=== PATIENT | female | born 1995 ===

== ENCOUNTER 2021-12-12 18:22 | Outpatient (CLI) | payer SELFPAY ==
[2021-12-12] MEDS ORDERED: NIFEdipine*For Tocolysis only* 10 MG CAPSULE PO ONE ×2 (19:13→22:00)
[2021-12-12] MEDS ORDERED: LACTATED RINGERS 1,000 ML IV SCH (19:15)
[2021-12-12] MEDS ORDERED: BETAMET ACET/BETAMET NA PH 6 MG/ML INJ 5 ML MDV IM SCH (20:00)
[2021-12-13 00:36] VITALS: BP 96/56
[2021-12-13] MEDS ORDERED: TERBUTALINE 1 MG/1 ML INJ SUB-Q ONE (00:49)
--- NOTE | 2021-12-13 06:55 | Ultrasound Report ---
ULTRASOUND OBSTETRIC INDICATION / CLINICAL INFORMATION: contractions, Twins. Clinical Gestational Age (GA) in weeks, days: 28, 0 TECHNIQUE: Transabdominal. COMPARISON: None available. FINDINGS: Twin intrauterine . TWIN A: Biparietal Diameter = 7.4 cm = 29, 3 weeks, days Head Circumference = 24.7 cm = 26, 6 weeks, days Abdominal Circumference = 23.8 cm = 20, 1 weeks, days Femur Length = 5.0 cm = 27, 0 weeks, days Average Ultrasound Age (AUA) = 28, 4 weeks, days Heart Rate: 150 beats per minute. Estimated Weight in grams (if calculated): 1114 Estimated Weight Growth Percentile (if calculated): Position: cephalic. TWIN B: Biparietal Diameter = 7.2 cm = 29, 0 weeks, days Head Circumference = 25.5 cm = 27, 5 weeks, days Abdominal Circumference = 25.2 cm = 29, 3 weeks, days Femur Length = 5.3 cm = 28, 0 weeks, days Average Ultrasound Age (AUA) = 27, 6 weeks, days TRACE for twin B measuring 14.2 cm. Heart Rate: 143 beats per minute. Estimated Weight in grams (if calculated): 1277 Position: breech. Cervix: closed. Length in cm (if measured): 3.3 Placenta: anterior and free of the os. IMPRESSION: 1. Twin live intrauterine gestations with twin A measuring approximately 27 weeks 6 days and twin B m easuring approximately 28 weeks 4 days. 2. No significant sonographic abnormality. Signer Name: Florentin Jhaveri DO Signed: 12/13/2021 6:51 AM Workstation Name: [id number]
== END 2021-12-13 01:15 | disposition home or self-care (01) ==
LOC: TRG 18:22 → APU 18:25 → TRG 12-13 01:15
PROVIDERS: ATTEND Obstetrics & Gynecology
DX: O62.9 Abnormality of forces of labor, unspecified (principal); O32.1XX2 Maternal care for breech presentation, fetus 2; O30.003 Twin pregnancy, unspecified number of placenta and unspecified number of amniotic sacs, third trimester; Z3A.28 28 weeks gestation of pregnancy
CPT/HCPCS: 36415; 59025; 76816; 76817; 82731; 96361; 96365; 96366; 96372; J0690; J0702; J3105; J7120; 96360

== ENCOUNTER 2022-01-13 05:43 | Inpatient (IN) | payer SELFPAY ==
[2022-01-13] MEDS ORDERED: LACTATED RINGERS 1,000 ML ONE (07:08)
[2022-01-13] MEDS ORDERED: ACETAMINOPHEN 325 MG TAB PO PRN (08:00)
[2022-01-13] MEDS ORDERED: AMPICILLIN/NS 2 GM/100 ML 2 GM/100 ML BAG IV SCH (08:00)
[2022-01-13] MEDS ORDERED: ONDANSETRON 4 MG/2 ML INJ IV SCH (08:30)
[2022-01-13] MEDS ORDERED: LACTATED RINGERS 500 ML IV ONE (08:30)
[2022-01-13] MEDS: BETAMET ACET/BETAMET NA PH 6 MG/ML INJ 5 ML MDV IM SCH (08:30)
[2022-01-13 08:52] LABS: Basophils % (Auto) 0.2 % (0.0-1.8); Eosinophils # (Auto) 0.1 K/mm3 (0.0-0.4); Eosinophils % (Auto) 0.9 % (0.0-4.3); Hematocrit 29.9 % (30.3-42.9); Hemoglobin 9.6 gm/dl (10.1-14.3); Lymphocytes # (Auto) 2.6 K/mm3 (1.2-5.4); Lymphocytes % (Auto) 17.7 % (13.4-35.0); Mean Corpuscular HGB Conc 32 % (30-34); Mean Corpuscular Volume 78 fl (79-97); Monocytes # (Auto) 1.4 K/mm3 (0.0-0.8); Monocytes % (Auto) 9.6 % (0.0-7.3); Platelet Count 287 K/mm3 (140-440); Red Blood Count 3.83 M/mm3 (3.65-5.03); Red Cell Distribution Width 17.2 % (13.2-15.2)
[2022-01-13 09:17] LABS: Alanine Aminotransferase 7 units/L (7-56); Albumin 3.5 g/dL (3.9-5); Blood Urea Nitrogen 3 mg/dL (7-17); Calcium 8.6 mg/dL (8.4-10.2); Hemolysis Index 7
[2022-01-13] MEDS ORDERED: MAGNESIUM SULFATE 4 GM/100 ML BAG IV ONE (09:30)
[2022-01-13 09:31] LABS: BUN/Creatinine Ratio 8
[2022-01-13 09:50] LABS: Amphetamine Screen,Urine Negative; Benzodiazepines Screen,Urine Negative; Cannabinoid Screen,Urine Negative; Cocaine Screen,Urine Negative; Methadone Screen,Urine Negative; Opiate Screen,Urine Negative
[2022-01-13] MEDS: MAGNESIUM SULFATE 40GM/1000ML 40 GM/1,000 ML BAG IV SCH (10:00)
--- NOTE | 2022-01-13 10:59 | History and Physical Report ---
History of Present Illness Date of examination: 01/13/22 Date of admission: 01/13/22 Chief complaint: Contractions. History of present illness: 32+ wks, . MANDIE 03/06/22. TWINS, x2 previous vaginal deliveries. Past History Past Medical History: no pertinent history - Obstetrical History Expected Date of Delivery: 03/06/22 Actual Gestation: 32 Week(s) 4 Day(s) : 4 Para: 2 Medications and Allergies Allergies Allergy/AdvReac Type Severity Reaction Status Date / Time No Known Allergies Allergy Verified 01/13/22 10:25 Active Meds: Active Medications Acetaminophen (Acetaminophen 325 Mg Tab) 650 mg PO Q4H PRN PRN Reason: Pain, Mild (1-3) Betamethasone Acet/Betameth SodPhos (Betamet Acet/Betamet Na Ph 6 Mg/Ml Inj 5 Ml Mdv) 12 mg IM Q24H GEOFF Stop: 01/14/22 09:01 Last Admin: 01/13/22 08:30 Dose: 12 mg Fentanyl (Fentanyl 100 Mcg/2 Ml Inj) 100 mcg IV Q2H PRN PRN Reason: Pain,Severe (7-10) LABOR PAIN Ampicillin Sodium (Ampicillin/Ns 2 Gm/100 Ml) 2 gm in 100 mls @ 100 mls/hr IV ONCE@0800 [facility]; Protocol Stop: 01/13/22 12:00 Last Admin: 01/13/22 08:30 Dose: 100 mls/hr Ampicillin Sodium (Ampicillin/Ns 1 Gm/50 Ml) 1 gm in 50 mls @ 100 mls/hr IV Q4H [facility]; Protocol Lactated Ringer's (Lactated Ringers) 1,000 mls @ 125 mls/hr IV DIRECT GEOFF Magnesium Sulfate (Magnesium Sulfate 40gm/1000ml) 40 gm in 1,000 mls @ 50 mls/hr IV DIRECT GEOFF Last Admin: 01/13/22 10:00 Dose: 2 gm/hr, 50 mls/hr Ondansetron HCl (Ondansetron 4 Mg/2 Ml Inj) 4 mg IV ONCE@0830 [facility] Stop: 01/13/22 12:30 Last Admin: 01/13/22 08:30 Dose: 4 mg Review of Systems All systems: negative Genitourinary: contractions - Vital Signs Vital signs: Vital Signs Pulse BP Pulse Ox 95 H 99/58 98 01/13/22 06:28 06/13/22 06:28 01/13/22 06:28 Temp Pulse Resp BP Pulse Ox 98.3 F 95 H 16 107/61 96 01/13/22 09:32 01/13/22 10:48 01/13/22 09:32 01/13/22 10:07 01/13/22 10:48 - Physical Exam Breasts: Positive: deferred Lungs: Positive: Normal air movement Abdomen: Positive: normal appearance, distention, normal bowel sounds Genitourinary (Female): Positive: normal external genitalia Vulva: both: normal Vagina: Positive: normal moisture. Negative: discharge Cervix: Negative: lesion, discharge Uterus: Positive: enlarged, normal contour Extremities: Positive: normal Deep Tendon Reflex Grade: Normal +2 - Obstetrical FHR: category 1 Cervical Dilatation: 5 Cervical Effacement Percentage: 100 station: 0+2 Uterine Contraction Pattern: Regular Uterine Contraction Intensity: Strong/Firm Results Result Diagrams: 01/13/22 08:22 01/13/22 08:22 Abnormal lab results 01/13/22 01/13/22 Range/Units 08:22 08:22 WBC 14.9 H (4.5-11.0) K/mm3 Hgb 9.6 L (10.1-14.3) gm/dl Hct 29.9 L (30.3-42.9) % MCV 78 L (79-97) fl MCH 25 L (28-32) pg RDW 17.2 H (13.2-15.2) % Iron % (Auto) 9.6 H (0.0-7.3) % Iron # (Auto) 1.4 H (0.0-0.8) K/mm3 Seg Neutrophils % 71.6 H (40.0-70.0) % Seg Neutrophils # 10.6 H (1.8-7.7) K/mm3 Sodium 136 L (137-145) mmol/L Carbon Dioxide 20 L (22-30) mmol/L BUN 3 L (7-17) mg/dL Creatinine 0.4 L (0.6-1.2) mg/dL Albumin 3.5 L (3.9-5) g/dL All other labs normal. Assessment and Plan - Patient Problems (1) 32 weeks gestation of Current Visit: Yes Status: Acute (2) Twin gestation in third trimester Current Visit: Yes Status: Acute (3) labor in third trimester Current Visit: Yes Status: Acute Plan to address problem: Admitted, GBS cultures, IV ampicillin IM celestone, IV MgSO4 instituted. NICU aware. Vaginal delivery likely.
[2022-01-13] MEDS: AMPICILLIN/NS 1 GM/50 ML 1 GM/50 ML BAG IV SCH ×3 (12:28→20:03)
[2022-01-13] MEDS: fentaNYL 100 MCG/2 ML INJ IV PRN ×2 (12:32→15:46)
[2022-01-13 12:55] LABS: Bilirubin,Urine Negative (Negative); Color,Urine Yellow (Yellow)
[2022-01-13 12:56] LABS: Blood,Urine Negative (Negative); Protein,Urine <15 mg/dL mg/dL (Negative)
--- NOTE | 2022-01-13 16:53 | Anesthesia Consultation ---
Anesthesia Consult and Med Hx Date of service: 01/13/22 - Airway Anesthetic Teeth Evaluation: Poor ROM Head & Neck: Adequate Mental/Hyoid Distance: Adequate Mallampati Class: Class II Intubation Access Assessment: Good - Pulmonary Exam CTA: Yes - Cardiac Exam Cardiac Exam: RRR - Pre-Operative Health Status ASA Pre-Surgery Classification: ASA2 Proposed Anesthetic Plan: Epidural - Pulmonary Hx Smoking: No Hx Asthma: No Hx Respiratory Symptoms: No SOB: No COPD: No Hx Pneumonia: No - Cardiovascular System Hx Hypertension: No - Central Nervous System Hx Seizures: No Hx Psychiatric Problems: No - Endocrine Hx Renal Disease: No Hx End Stage Renal Disease: No Hx Hypothyroidism: No Hx Hyperthyroidism: No - Hematic Hx Anemia: Yes Hx Sickle Cell Disease: No - Other Systems Hx Alcohol Use: No Hx Substance Use: No Hx Obesity: Yes - Additional Comments Anesthesia Medical History Comments: Pre term Labor 32wks Twins on MgS04
[2022-01-13] MEDS ORDERED: NALOXONE 0.4 MG/1 ML INJ IV PRN (17:01)
[2022-01-13] MEDS: LACTATED RINGERS 1,000 ML IV SCH ×3 (17:24→22:03)
[2022-01-13] MEDS ORDERED: NalbUPHINE 10 MG/1 ML INJ IV PRN (17:30)
[2022-01-13] MEDS ORDERED: fentaNYL 100 MCG/2 ML INJ IV PRN (17:30)
--- NOTE | 2022-01-13 19:05 | Progress Note ---
Labor Epidural - Labor Epidural Start Time: 18:36 Stop Time: 18:44 Performed by:: ABEBA POWELL Procedure: Patient is requesting epidural for labor pain. H&P and labs reviewed. Procedure explained, questions answered, consent obtained. Patient placed in sitting position with monitors applied. Timeout performed immediately before start of procedure. Prep/drape in usual sterile fashion. Skin localized 3 mL 1% lidocaine at L[3]-L[4] interspace. 17-gauge Touhy epidural needle advanced to LADONNA with saline at [6] cm x 1 attempts. No blood/CSF noted via epidural needle. Epidural catheter advanced to [10] cm. Negative aspiration for blood and CSF via catheter, negative response to test dose 3 ml 1.5% lidocaine w/ Epi. Sterile dressing applied followed by tape reinforcement. Patient tolerated procedure well. No immediate complications noted.
[2022-01-13] MEDS: fentaNYL-BUPIV 2 MCG/ML-0.125% 200 MCG/100 ML BAG EPIDURAL SCH (19:23)
[2022-01-13 19:55] LABS: Hepatitis C Virus Antibody Non-Reactive (NonReactive)
[2022-01-13] MEDS: ePHEDrine SULFATE 50 MG/1 ML INJ IV PRN ×2 (20:00→20:37)
[2022-01-14] MEDS: AMPICILLIN/NS 1 GM/50 ML 1 GM/50 ML BAG IV SCH ×5 (00:43→20:26)
--- NOTE | 2022-01-14 01:33 | Ultrasound Report ---
US OB limited, US OB follow up, US OB bpp ea add exam, US OB followup ea add gestat, US OB feta l BPP wo non-stress INDICATION / CLINICAL INFORMATION: labor COMPARISON: OB ultrasound 12/12/2021 TECHNIQUE: Using a transcutaneous probe, multiple grayscale, color Doppler, and spectral Doppler imag es of the uterus and fetuses were captured and stored. Additional biophysical profiles performed on e ach fetus. FINDINGS: Gestational sac is demonstrated with thin internal septation compatible with intertwin septation, con figuration of the placenta not clearly identified. The appearance based on thin intertwin septation i s thought to represent monochorionic diamniotic twins, however dichorionic diamniotic twins are docum ented on worksheet. Note is made that after the first trimester, a monochorionic placenta can be mult ilobed and dichorionic placentas may be fused. No earlier studies are available to clearly document t he complete septum. The uterine cervix is not identified. TWIN A: Twin A lies in cephalic position with a heart rate 134 bpm. Placenta documented to lie anteriorly and within the left lateral position. No evidence of abruption. Largest pocket of fluid measures 3.39 cm. Biparietal Diameter = 7.9 cm = 31, 5 weeks, days Head Circumference = 29.0 cm = 31, 6 weeks, days Abdominal Circumference = 28.8 cm = 32, 6 weeks, days Femur Length = 6.0 cm = 31, 1 weeks, days Average Ultrasound Age (AUA) = 31, 6 weeks, days. EDC 03/11/2022. Clinical history gestational age based on LMP of 05/30/2021 is 32 weeks 4 days. Estimated weight = 1908 g. Growth percentile 27%. BREATHING MOVEMENT = 2 GROSS BODY MOVEMENT = 2 TONE = 2 QUALITATIVE AMNIOTIC FLUID VOLUME = 2 TOTAL BIOPHYSICAL SCORE = 8/8 Heart rate of 138 bpm during acquisition of biophysical profile. TWIN B: Twin B lies in transverse position head to the maternal right, heart rate 140 bpm. Placenta is documented to lie within the posterior/left lateral position, grade 2. No evidence of abr uption. The largest pocket of fluid measures 5.93 cm. Biparietal Diameter = 8.0 cm = 31, 6 weeks, days Head Circumference = 30.2 cm = 33, 4 weeks, days Abdominal Circumference = 29.9 cm = 33, 6 weeks, days Femur Length = 5.9 cm = 30, 5 weeks, days Average Ultrasound Age (AUA) = 32, 4 weeks, days. Estimated date of delivery 03/06/2022. Clinical history gestational age based on LMP of 05/30/2021 is 32 weeks 4 days. Estimated weight = 2037 g. Growth percentile 45%. BREATHING MOVEMENT = 2 GROSS BODY MOVEMENT = 2 TONE = 2 QUALITATIVE AMNIOTIC FLUID VOLUME = 2 TOTAL BIOPHYSICAL SCORE = 8/8 IMPRESSION: 1. Living twin gestation as detailed. Minimal disparity in twin size. A thin internal membrane is pre sent. This finding is thought to represent evidence of monochorionic diamniotic twins, see discussion above. 2. Uterine cervix not identified. 3. Normal biophysical profile score for both twins. 4. Largest pocket of amniotic fluid as detailed. Signer Name: Carl Ramesh II, MD Signed: 01/14/2022 1:28 AM Workstation Name: [id number]
[2022-01-14] MEDS: ePHEDrine SULFATE 50 MG/1 ML INJ IV PRN (02:09)
[2022-01-14] MEDS: fentaNYL-BUPIV 2 MCG/ML-0.125% 200 MCG/100 ML BAG EPIDURAL SCH ×3 (03:48→21:10)
[2022-01-14] MEDS: MAGNESIUM SULFATE 40GM/1000ML 40 GM/1,000 ML BAG IV SCH (05:51)
[2022-01-14] MEDS: BETAMET ACET/BETAMET NA PH 6 MG/ML INJ 5 ML MDV IM SCH (08:42)
[2022-01-14] MEDS ORDERED: CARBOPROST TROMETHAMINE 250 MCG/1 ML INJ IM PRN (09:23)
[2022-01-14] MEDS ORDERED: LIDOCAINE (2%) 20 MG/1 ML VIAL 20 ML MDV INFILTRATI ONE (09:23)
[2022-01-14] MEDS ORDERED: OXYTOCIN 10 UNIT/1 ML INJ IM PRN (09:23)
[2022-01-14] MEDS ORDERED: LOPERAMIDE 2 MG CAP PO PRN (09:23)
[2022-01-14] MEDS ORDERED: ePHEDrine SULFATE 50 MG/1 ML INJ IV PRN (09:23)
[2022-01-14] MEDS ORDERED: TERBUTALINE 1 MG/1 ML INJ SUB-Q PRN (09:23)
[2022-01-14] MEDS ORDERED: miSOPROStol 200 MCG TAB PR PRN (09:23)
[2022-01-14] MEDS ORDERED: fentaNYL 100 MCG/2 ML INJ IV PRN (10:00)
[2022-01-14] MEDS ORDERED: OXYTOCIN DRIP 30 UNITS/500 ML BAG IV SCH ×2 (10:00)
[2022-01-14] MEDS ORDERED: NalbUPHINE 10 MG/1 ML INJ IV PRN (10:00)
[2022-01-14] MEDS ORDERED: ACETAMINOPHEN 325 MG TAB PO PRN (10:00)
[2022-01-14] MEDS ORDERED: PROMETHAZINE 25 MG TAB PO PRN (10:00)
[2022-01-14] MEDS ORDERED: ONDANSETRON 4 MG/2 ML INJ IV PRN (10:00)
--- NOTE | 2022-01-14 10:41 | Event Note ---
Date: 01/14/22 pt evaluated and comfortable with epidural, di/di twin gest vtx/breech and cervix unchanged. FHR categor I for both babies and cts ocassional at this time. Consult to [facility] done and await physician to see pt. Pt has received rescue dose of betamethasone x1. Will do expectant mgt and Anesthesia notified and state pt may remain with epidural if wbc wnl, however if pt not in labor, epidural can be removed. If delivery imminent, then will do delivery with double setup in the OR. All questions encouraged and answered. Will continue G BS prophylaxis with advanced cervical dilation.
--- NOTE | 2022-01-14 13:35 | Consultation ---
History of Present Illness Consult date: 01/14/22 Requesting physician: SUJIT BARBOSA History of present illness: Ms. Lizz Garduno is a 26 y/o SF MANDIE 03/06/22 EGA at 32 5/7 weeks Di/Di Twins presented in PTL with advanced dilation S/P Steroids [employer] ID [id number] - Sahian Cervix per nurse at 6 cm Contractions Denies rupture Epidural in place C/O back pain and nausea Seen once by [facility] 01/06/2002 - See [facility] report attached to chart [facility] 01/06/22 Twin A at 1857g 49% - VTX Twin B at 1873g 51% - [facility] US 01/13/22 Twin A at 1908g 27% - VTX Twin B at 2038g 45% - Transverse OB history X 2 Tern in 2019 NO med ds No C/D/D Denies STD's NKA Past History Past Medical History: no pertinent history - Obstetrical History : 4 Medications and Allergies Allergies Allergy/AdvReac Type Severity Reaction Status Date / Time No Known Allergies Allergy Verified 01/13/22 10:25 Home Medications Medication Instructions Recorded Confirmed Last Taken Type Ferrous Fumarate (Nf) 1 tab PO BID 01/13/22 01/13/22 01/12/22 History [Hemocyte(Nf)] Folic Acid 1 tab PO DAILY 01/13/22 01/13/22 01/12/22 History Vitamin 1 tab PO DAILY 01/13/22 01/13/22 01/12/22 History Active Meds: Active Medications Acetaminophen (Acetaminophen 325 Mg Tab) 650 mg PO Q4H PRN PRN Reason: Pain, Mild (1-3) Carboprost Tromethamine (Carboprost Tromethamine 250 Mcg/1 Ml Inj) 250 mcg IM ONCE PRN PRN Reason: Uterine Bleeding Ephedrine Sulfate (Ephedrine Sulfate 50 Mg/1 Ml Inj) 10 mg IV Q2M PRN PRN Reason: Hypotension Fentanyl (Fentanyl 100 Mcg/2 Ml Inj) 100 mcg IV Q2H PRN PRN Reason: Pain,Severe (7-10) LABOR PAIN Ampicillin Sodium (Ampicillin/Ns 1 Gm/50 Ml) 1 gm in 50 mls @ 100 mls/hr IV Q4H GEOFF; Protocol Last Admin: 01/14/22 10:54 Dose: 100 mls/hr Magnesium Sulfate (Magnesium Sulfate 40gm/1000ml) 40 gm in 1,000 mls @ 50 mls /hr IV DIRECT GEOFF Last Admin: 01/14/22 05:51 Dose: 2 gm/hr, 50 mls/hr Fentanyl/Bupivacaine/Sodium Chlor (Fentanyl-Bupiv 2 Mcg/Ml-0.125%) 200 mcg in 100 mls @ 12 mls/hr EPIDURAL TITR GEOFF; Protocol Last Admin: 01/14/22 03:48 Dose: 12 mls/hr Oxytocin/Sodium Chloride (Pitocin/Ns 30 Unit/500ml) 30 units in 500 mls @ 2 mls/hr IV TITR GEOFF; Protocol Lactated Ringer's (Lactated Ringers) 1,000 mls @ 125 mls/hr IV DIRECT GEOFF Oxytocin/Sodium Chloride (Pitocin/Ns 30 Unit/500ml) 30 units in 500 mls @ 40 mls/hr IV TITR GEOFF; Protocol Loperamide HCl (Loperamide 2 Mg Cap) 2 mg PO ONCE PRN PRN Reason: give with Hemabate Mineral Oil (Mineral Oil 30 Ml Oral Liqd) 30 ml PO QHS PRN PRN Reason: Constipation Misoprostol (Misoprostol 200 Mcg Tab) 800 mcg ND ONCE PRN PRN Reason: Uterine Bleeding Nalbuphine HCl (Nalbuphine 10 Mg/1 Ml Inj) 10 mg IV Q2H PRN PRN Reason: Pain, Moderate (4-6) Naloxone HCl (Naloxone 0.4 Mg/1 Ml Inj) 0.2 mg IV Q5MIN PRN PRN Reason: Respiratory sedation Ondansetron HCl (Ondansetron 4 Mg/2 Ml Inj) 4 mg IV Q8H PRN PRN Reason: Nausea And Vomiting Oxytocin (Oxytocin 10 Unit/1 Ml Inj) 10 unit IM ONCE PRN PRN Reason: Uterine Bleeding Promethazine HCl (Promethazine 25 Mg Tab) 25 mg PO Q6H PRN PRN Reason: Nausea And Vomiting Terbutaline Sulfate (Terbutaline 1 Mg/1 Ml Inj) 0.25 mg SUB-Q ONCE PRN PRN Reason: Hyperstimulation/Hypertonicity - Vital Signs Vital signs: Vital Signs Pulse BP Pulse Ox 95 H 99/58 98 01/13/22 06:28 01/13/22 06:28 01/13/22 06:28 Temp Pulse Resp BP Pulse Ox 98.5 F 98 H 16 92/55 95 01/14/22 09:26 01/14/22 13:29 01/14/22 09:26 01/14/22 12:39 01/14/22 13:29 Results Result Diagrams: 01/13/22 08:22 01/13/22 08:22 Abnormal lab results 01/13/22 01/13/22 01/14/22 Range/Units 18:34 23:09 11:43 Magnesium 5.30 H 5.90 H 6.50 H (1.7-2.3) mg/dL All other labs normal. Assessment and Plan Impression: 1. Di/Di Twin IUP at 32 5/7 weeks 2. PTL - Advanced Dilation 3. Anemia Recommendations 1. Steroids for FLM [address] 3. Would not Tocolys - 4. NICU Consult 5. Discussed with Dr. Barbosa 6. US done ( See results ) EFM Twin A and B Categ I 7. [employer] Utilized see above
[2022-01-14] MEDS ORDERED: MINERAL OIL 30 ML ORAL LIQD PO PRN (22:00)
[2022-01-15] MEDS: AMPICILLIN/NS 1 GM/50 ML 1 GM/50 ML BAG IV SCH ×5 (00:30→20:33)
[2022-01-15] MEDS ORDERED: NIFEdipine*For Tocolysis only* 10 MG CAPSULE PO STA (02:52)
[2022-01-15] MEDS ORDERED: NIFEdipine*For Tocolysis only* 10 MG CAPSULE PO SCH (06:00)
[2022-01-15] MEDS ORDERED: SIMETHICONE 80 MG CHEW TAB PO PRN (06:17)
[2022-01-15] MEDS: fentaNYL-BUPIV 2 MCG/ML-0.125% 200 MCG/100 ML BAG EPIDURAL SCH ×2 (06:32→16:14)
[2022-01-15] MEDS ORDERED: diphenhydrAMINE 50 MG/ML VIAL IV ONE (07:17)
[2022-01-15] MEDS: LACTATED RINGERS 1,000 ML IV SCH (16:15)
[2022-01-15] MEDS ORDERED: AMPICILLIN/NS 2 GM/100 ML 2 GM/100 ML BAG IV ONE (18:49)
--- NOTE | 2022-01-15 18:55 | Event Note ---
Date: 01/15/22 pt evaluated and pt c/o pelvic pressure and pain to upper abd. Pelvic exam done and pt 8-9cm intact with large amount of white discharge. Will repeat CBC now, give amp 2gm now and will plan to proceed to the OR for vaginal delivery when complete and pt still with epidural in place with vertex twin A and breech twin B. Plan of care discussed with pt and await charge nurse and staff to be present. Twin A with deep variables and variability still present. Possible section if Twin B non-reassuring. All questions encouraged and an swered.
[2022-01-15 21:30] LABS: Basophils % (Auto) 0.1 % (0.0-1.8); Eosinophils % (Auto) 0.1 % (0.0-4.3); Hematocrit 25.5 % (30.3-42.9); Lymphocytes # (Auto) 1.8 K/mm3 (1.2-5.4); Lymphocytes % (Auto) 17.4 % (13.4-35.0); Mean Corpuscular HGB Conc 32 % (30-34); Mean Corpuscular Volume 81 fl (79-97); Monocytes # (Auto) 1.1 K/mm3 (0.0-0.8); Monocytes % (Auto) 10.8 % (0.0-7.3); Platelet Count 297 K/mm3 (140-440); Red Blood Count 3.14 M/mm3 (3.65-5.03); Red Cell Distribution Width 18.9 % (13.2-15.2)
[2022-01-16] MEDS: fentaNYL-BUPIV 2 MCG/ML-0.125% 200 MCG/100 ML BAG EPIDURAL SCH ×3 (03:32→18:26)
[2022-01-16] MEDS: LACTATED RINGERS 1,000 ML IV SCH ×2 (03:37→12:49)
--- NOTE | 2022-01-16 08:04 | Progress Note ---
Assessment and Plan A: Twin Gestation @ 33 Weeks Category I Tracing x2 Advanced Cervical Dilatation Bilateral Labial Edema Asymptomatic Anemia P: Expectant Management Consult Dr. Berrios due to Twin Gestation with advanced cervical dilatation Subjective - Subjective Date of service: 01/16/22 Principal diagnosis: Labor; Twin Gestation Patient reports: movement normal, other (Resting well under epidural anesthesia) Objective - Vital Signs Vital Signs: Vital Signs - 12hr 01/15/22 01/15/22 01/15/22 20:04 20:09 20:14 Temperature Pulse Rate 78 75 81 Respiratory Rate Blood Pressure Blood Pressure [Right] O2 Sat by Pulse 97 97 96 Oximetry 01/15/22 01/15/22 01/15/22 20:19 20:24 20:29 Temperature Pulse Rate 81 84 84 Respiratory Rate Blood Pressure Blood Pressure [Right] O2 Sat by Pulse 96 97 98 Oximetry 01/15/22 01/15/22 01/15/22 20:34 20:39 20:44 Temperature Pulse Rate 80 78 78 Respiratory Rate Blood Pressure Blood Pressure [Right] O2 Sat by Pulse 96 96 96 Oximetry 01/15/22 01/15/22 01/15/22 20:49 20:54 20:59 Temperature Pulse Rate 84 77 80 Respiratory Rate Blood Pressure Blood Pressure [Right] O2 Sat by Pulse 96 97 98 Oximetry 01/15/22 01/15/22 01/15/22 21:02 21:04 21:09 Temperature Pulse Rate 78 75 79 Respiratory Rate Blood Pressure Blood Pressure [Right] O2 Sat by Pulse 67 L 98 96 Oximetry 01/15/22 01/15/22 01/15/22 21:14 21:19 21:24 Temperature Pulse Rate 91 H 77 81 Respiratory Rate Blood Pressure Blood Pressure [Right] O2 Sat by Pulse 97 96 95 Oximetry 01/15/22 01/15/22 01/15/22 21:29 21:34 21:35 Temperature Pulse Rate 84 85 84 Respiratory Rate Blood Pressure Blood Pressure [Right] O2 Sat by Pulse 95 94 94 Oximetry 01/15/22 01/15/22 01/15/22 21:39 21:40 21:44 Temperature Pulse Rate 84 81 84 Respiratory Rate Blood Pressure Blood Pressure [Right] O2 Sat by Pulse 95 94 97 Oximetry 01/15/22 01/15/22 01/15/22 21:49 21:54 21:59 Temperature Pulse Rate 76 77 74 Respiratory Rate Blood Pressure Blood Pressure [Right] O2 Sat by Pulse 97 96 97 Oximetry 01/15/22 01/15/22 01/15/22 22:04 22:09 22:14 Temperature Pulse Rate 74 73 73 Respiratory Rate Blood Pressure Blood Pressure [Right] O2 Sat by Pulse 96 97 96 Oximetry 01/15/22 01/15/22 01/15/22 22:19 22:24 22:25 Temperature Pulse Rate 71 70 72 Respiratory Rate Blood Pressure Blood Pressure [Right] O2 Sat by Pulse 96 95 94 Oximetry 01/15/22 01/15/22 01/15/22 22:29 22:34 22:39 Temperature Pulse Rate 72 74 76 Respiratory Rate Blood Pressure Blood Pressure [Right] O2 Sat by Pulse 96 96 96 Oximetry 01/15/22 01/15/22 01/15/22 22:44 22:49 22:54 Temperature Pulse Rate 75 74 71 Respiratory Rate Blood Pressure Blood Pressure [Right] O2 Sat by Pulse 96 95 96 Oximetry 01/15/22 01/15/22 01/15/22 22:57 22:59 23:02 Temperature Pulse Rate 75 79 79 Respiratory Rate Blood Pressure Blood Pressure [Right] O2 Sat by Pulse 94 94 94 Oximetry 01/15/22 01/15/22 01/15/22 23:04 23:09 23:14 Temperature Pulse Rate 75 60 77 Respiratory Rate Blood Pressure Blood Pressure [Right] O2 Sat by Pulse 96 96 96 Oximetry 01/15/22 01/15/22 01/15/22 23:19 23:24 23:27 Temperature Pulse Rate 74 72 85 Respiratory Rate Blood Pressure Blood Pressure [Right] O2 Sat by Pulse 96 95 91 Oximetry 01/15/22 01/15/22 01/15/22 23:29 23:34 23:35 Temperature Pulse Rate 71 86 86 Respiratory Rate Blood Pressure Blood Pressure [Right] O2 Sat by Pulse 98 95 90 Oximetry 01/15/22 01/15/22 01/15/22 23:39 23:44 23:49 Temperature Pulse Rate 72 80 70 Respiratory Rate Blood Pressure Blood Pressure [Right] O2 Sat by Pulse 98 98 98 Oximetry 01/15/22 01/15/22 01/16/22 23:54 23:59 00:04 Temperature 98.3 F Pulse Rate 74 73 71 Respiratory 18 Rate Blood Pressure 105/58 Blood Pressure 105/58 [Right] O2 Sat by Pulse 97 99 98 Oximetry 01/16/22 01/16/22 01/16/22 00:09 00:14 00:19 Temperature Pulse Rate 84 72 75 Respiratory Rate Blood Pressure Blood Pressure [Right] O2 Sat by Pulse 97 99 98 Oximetry 01/16/22 01/16/22 01/16/22 00:24 00:29 00:34 Temperature Pulse Rate 72 72 72 Respiratory Rate Blood Pressure Blood Pressure [Right] O2 Sat by Pulse 97 98 96 Oximetry 01/16/22 01/16/22 01/16/22 00:39 00:44 00:49 Temperature Pulse Rate 69 80 71 Respiratory Rate Blood Pressure Blood Pressure [Right] O2 Sat by Pulse 97 98 97 Oximetry 01/16/22 01/16/22 01/16/22 00:54 00:59 01:04 Temperature Pulse Rate 60 74 74 Respiratory Rate Blood Pressure Blood Pressure [Right] O2 Sat by Pulse 97 98 97 Oximetry 01/16/22 01/16/22 01/16/22 01:09 01:14 01:19 Temperature Pulse Rate 70 72 73 Respiratory Rate Blood Pressure Blood Pressure [Right] O2 Sat by Pulse 97 98 98 Oximetry 01/16/22 01/16/22 01/16/22 01:24 01:29 01:34 Temperature Pulse Rate 72 74 74 Respiratory Rate Blood Pressure Blood Pressure [Right] O2 Sat by Pulse 98 97 96 Oximetry 01/16/22 01/16/22 01/16/22 01:39 01:44 01:49 Temperature Pulse Rate 72 81 86 Respiratory Rate Blood Pressure Blood Pressure [Right] O2 Sat by Pulse 98 96 97 Oximetry 01/16/22 01/16/22 01/16/22 01:54 01:59 02:04 Temperature Pulse Rate 72 68 81 Respiratory Rate Blood Pressure Blood Pressure [Right] O2 Sat by Pulse 96 97 97 Oximetry 01/16/22 01/16/22 01/16/22 02:09 02:14 02:19 Temperature Pulse Rate 73 73 69 Respiratory Rate Blood Pressure Blood Pressure [Right] O2 Sat by Pulse 97 96 97 Oximetry 01/16/22 01/16/22 01/16/22 02:24 02:29 02:34 Temperature Pulse Rate 73 71 72 Respiratory Rate Blood Pressure Blood Pressure [Right] O2 Sat by Pulse 97 96 97 Oximetry 01/16/22 01/16/22 01/16/22 02:39 02:44 02:49 Temperature Pulse Rate 73 59 L 68 Respiratory Rate Blood Pressure Blood Pressure [Right] O2 Sat by Pulse 97 96 97 Oximetry 01/16/22 01/16/22 01/16/22 02:54 02:59 03:04 Temperature Pulse Rate 72 70 69 Respiratory Rate Blood Pressure Blood Pressure [Right] O2 Sat by Pulse 96 96 96 Oximetry 01/16/22 01/16/22 01/16/22 03:09 03:14 03:19 Temperature Pulse Rate 74 67 78 Respiratory Rate Blood Pressure Blood Pressure [Right] O2 Sat by Pulse 97 96 96 Oximetry 01/16/22 01/16/22 01/16/22 03:24 03:29 03:34 Temperature Pulse Rate 75 75 82 Respiratory Rate Blood Pressure Blood Pressure [Right] O2 Sat by Pulse 96 95 96 Oximetry 01/16/22 01/16/22 01/16/22 03:39 03:44 03:49 Temperature Pulse Rate 82 69 80 Respiratory Rate Blood Pressure Blood Pressure [Right] O2 Sat by Pulse 96 95 96 Oximetry 01/16/22 01/16/22 01/16/22 03:54 03:59 04:04 Temperature Pulse Rate 69 74 72 Respiratory Rate Blood Pressure Blood Pressure [Right] O2 Sat by Pulse 96 97 97 Oximetry 01/16/22 01/16/22 01/16/22 04:09 04:14 04:19 Temperature Pulse Rate 56 L 71 68 Respiratory Rate Blood Pressure Blood Pressure [Right] O2 Sat by Pulse 97 97 96 Oximetry 01/16/22 01/16/22 01/16/22 04:24 04:29 04:34 Temperature Pulse Rate 67 73 68 Respiratory Rate Blood Pressure Blood Pressure [Right] O2 Sat by Pulse 97 97 96 Oximetry 01/16/22 01/16/22 01/16/22 04:39 04:44 04:49 Temperature Pulse Rate 70 60 68 Respiratory Rate Blood Pressure Blood Pressure [Right] O2 Sat by Pulse 97 97 97 Oximetry 01/16/22 01/16/22 01/16/22 04:54 04:59 05:04 Temperature Pulse Rate 72 68 73 Respiratory Rate Blood Pressure Blood Pressure [Right] O2 Sat by Pulse 96 96 97 Oximetry 01/16/22 01/16/22 01/16/22 05:09 05:12 05:14 Temperature 98.1 F Pulse Rate 70 64 75 Respiratory 18 Rate Blood Pressure 100/59 Blood Pressure 100/59 [Right] O2 Sat by Pulse 97 96 97 Oximetry 01/16/22 01/16/22 01/16/22 05:19 05:24 05:29 Temperature Pulse Rate 84 73 72 Respiratory Rate Blood Pressure Blood Pressure [Right] O2 Sat by Pulse 96 96 97 Oximetry 01/16/22 01/16/22 01/16/22 05:34 05:39 05:44 Temperature Pulse Rate 72 76 71 Respiratory Rate Blood Pressure Blood Pressure [Right] O2 Sat by Pulse 97 96 97 Oximetry 01/16/22 01/16/22 01/16/22 05:49 05:54 05:59 Temperature Pulse Rate 75 65 59 L Respiratory Rate Blood Pressure Blood Pressure [Right] O2 Sat by Pulse 97 96 97 Oximetry 01/16/22 01/16/22 01/16/22 06:04 06:09 06:14 Temperature Pulse Rate 77 71 76 Respiratory Rate Blood Pressure Blood Pressure [Right] O2 Sat by Pulse 97 97 97 Oximetry 01/16/22 01/16/22 01/16/22 06:19 06:24 06:29 Temperature Pulse Rate 84 74 73 Respiratory Rate Blood Pressure Blood Pressure [Right] O2 Sat by Pulse 99 98 97 Oximetry 01/16/22 01/16/22 01/16/22 06:34 06:39 06:44 Temperature Pulse Rate 62 72 69 Respiratory Rate Blood Pressure Blood Pressure [Right] O2 Sat by Pulse 96 96 96 Oximetry 01/16/22 01/16/22 01/16/22 06:49 06:54 06:57 Temperature Pulse Rate 69 67 79 Respiratory Rate Blood Pressure Blood Pressure [Right] O2 Sat by Pulse 96 95 94 Oximetry 01/16/22 01/16/22 01/16/22 06:59 07:04 07:05 Temperature Pulse Rate 71 72 78 Respiratory Rate Blood Pressure Blood Pressure [Right] O2 Sat by Pulse 96 95 94 Oximetry 01/16/22 01/16/22 01/16/22 07:09 07:14 07:19 Temperature Pulse Rate 75 73 67 Respiratory Rate Blood Pressure Blood Pressure [Right] O2 Sat by Pulse 97 96 96 Oximetry 01/16/22 01/16/22 01/16/22 07:24 07:29 07:34 Temperature Pulse Rate 70 74 67 Respiratory Rate Blood Pressure Blood Pressure [Right] O2 Sat by Pulse 97 99 97 Oximetry 01/16/22 01/16/22 01/16/22 07:39 07:44 07:49 Temperature Pulse Rate 78 71 70 Respiratory Rate Blood Pressure Blood Pressure [Right] O2 Sat by Pulse 96 97 97 Oximetry 01/16/22 07:54 Temperature Pulse Rate 72 Respiratory Rate Blood Pressure Blood Pressure [Right] O2 Sat by Pulse 96 Oximetry - Exam Breasts: normal Cardiovascular: Regular rate Lungs: Clear to auscultation, Normal air movement Abdomen: Present: normal appearance, soft, normal bowel sounds Vulva: both: normal (Bilateral labial edema) Uterus: Present: normal, firm, fundal height at umbilicus FHR: category 1 Uterine Contraction Monitor Mode: External Cervical Dilatation: 6 (Intact; VTX (twin A);) Cervical Effacement Percentage: 70 station: -1 Uterine Contraction Pattern: Irregular Uterine Tone Measurement Phase: Resting Uterine Contraction Intensity: Moderate Extremities: normal - Labs Labs: Abnormal Labs 01/13/22 01/13/22 01/13/22 08:22 08:22 08:22 WBC 14.9 H RBC Hgb 9.6 L Hct 29.9 L MCV 78 L MCH 25 L RDW 17.2 H [place] % (Auto) 9.6 H [place] # (Auto) 1.4 H Seg Neutrophils % 71.6 H Seg Neutrophils # 10.6 H Sodium 136 L Carbon Dioxide 20 L BUN 3 L Creatinine 0.4 L Magnesium Albumin 3.5 L Urine WBC (Auto) 66.0 H U Epithel Cells (Auto) 33.0 H 01/13/22 01/13/22 01/14/22 18:34 23:09 11:43 WBC RBC Hgb Hct MCV MCH RDW [place] % (Auto) [place] # (Auto) Seg Neutrophils % Seg Neutrophils # Sodium Carbon Dioxide BUN Creatinine Magnesium 5.30 H 5.90 H 6.50 H Albumin Urine WBC (Auto) U Epithel Cells (Auto) 01/15/22 01/15/22 00:15 21:01 WBC RBC 3.14 L Hgb 8.0 L Hct 25.5 L MCV MCH 26 L RDW 18.9 H [place] % (Auto) 10.8 H [place] # (Auto) 1.1 H Seg Neutrophils % 71.6 H Seg Neutrophils # Sodium Carbon Dioxide BUN Creatinine Magnesium 6.30 H Albumin Urine WBC (Auto) U Epithel Cells (Auto) Laboratory Results - last 24 hr 01/15/22 21:01 WBC 10.2 RBC 3.14 L Hgb 8.0 L Hct 25.5 L MCV 81 MCH 26 L MCHC 32 RDW 18.9 H Plt Count 297 Lymph % (Auto) 17.4 [place] % (Auto) 10.8 H Eos % (Auto) 0.1 Baso % (Auto) 0.1 Lymph # (Auto) 1.8 [place] # (Auto) 1.1 H Eos # (Auto) 0.0 Baso # (Auto) 0.0 Seg Neutrophils % 71.6 H Seg Neutrophils # 7.3
--- NOTE | 2022-01-16 11:18 | Progress Note ---
Subjective Date of service: 01/16/22 Principal diagnosis: Labor; Twin Gestation Interval history: Patient comfortable with epidural, Epidural site intact no redness or signs of infection. No fever, WBC WNL's. Will continue to monitor. [place] [employer] Hand # used for translation. Objective - Constitutional Vitals: Vital Signs - 12hr 01/15/22 01/15/22 01/15/22 23:19 23:24 23:27 Temperature Pulse Rate 74 72 85 Respiratory Rate Blood Pressure Blood Pressure [Right] O2 Sat by Pulse 96 95 91 Oximetry O2 Sat by Pulse Oximetry [ Anterior Bilateral Throughout] 01/15/22 01/15/22 01/15/22 23:29 23:34 23:35 Temperature Pulse Rate 71 86 86 Respiratory Rate Blood Pressure Blood Pressure [Right] O2 Sat by Pulse 98 95 90 Oximetry O2 Sat by Pulse Oximetry [ Anterior Bilateral Throughout] 01/15/22 01/15/22 01/15/22 23:39 23:44 23:49 Temperature Pulse Rate 72 80 70 Respiratory Rate Blood Pressure Blood Pressure [Right] O2 Sat by Pulse 98 98 98 Oximetry O2 Sat by Pulse Oximetry [ Anterior Bilateral Throughout] 01/15/22 01/15/22 01/16/22 23:54 23:59 00:04 Temperature 98.3 F Pulse Rate 74 73 71 Respiratory 18 Rate Blood Pressure 105/58 Blood Pressure 105/58 [Right] O2 Sat by Pulse 97 99 98 Oximetry O2 Sat by Pulse Oximetry [ Anterior Bilateral Throughout] 01/16/22 01/16/22 01/16/22 00:09 00:14 00:19 Temperature Pulse Rate 84 72 75 Respiratory Rate Blood Pressure Blood Pressure [Right] O2 Sat by Pulse 97 99 98 Oximetry O2 Sat by Pulse Oximetry [ Anterior Bilateral Throughout] 01/16/22 01/16/22 01/16/22 00:24 00:29 00:34 Temperature Pulse Rate 72 72 72 Respiratory Rate Blood Pressure Blood Pressure [Right] O2 Sat by Pulse 97 98 96 Oximetry O2 Sat by Pulse Oximetry [ Anterior Bilateral Throughout] 01/16/22 01/16/22 01/16/22 00:39 00:44 00:49 Temperature Pulse Rate 69 80 71 Respiratory Rate Blood Pressure Blood Pressure [Right] O2 Sat by Pulse 97 98 97 Oximetry O2 Sat by Pulse Oximetry [ Anterior Bilateral Throughout] 01/16/22 01/16/22 01/16/22 00:54 00:59 01:04 Temperature Pulse Rate 60 74 74 Respiratory Rate Blood Pressure Blood Pressure [Right] O2 Sat by Pulse 97 98 97 Oximetry O2 Sat by Pulse Oximetry [ Anterior Bilateral Throughout] 01/16/22 01/16/22 01/16/22 01:09 01:14 01:19 Temperature Pulse Rate 70 72 73 Respiratory Rate Blood Pressure Blood Pressure [Right] O2 Sat by Pulse 97 98 98 Oximetry O2 Sat by Pulse Oximetry [ Anterior Bilateral Throughout] 01/16/22 01/16/22 01/16/22 01:24 01:29 01:34 Temperature Pulse Rate 72 74 74 Respiratory Rate Blood Pressure Blood Pressure [Right] O2 Sat by Pulse 98 97 96 Oximetry O2 Sat by Pulse Oximetry [ Anterior Bilateral Throughout] 01/16/22 01/16/22 01/16/22 01:39 01:44 01:49 Temperature Pulse Rate 72 81 86 Respiratory Rate Blood Pressure Blood Pressure [Right] O2 Sat by Pulse 98 96 97 Oximetry O2 Sat by Pulse Oximetry [ Anterior Bilateral Throughout] 01/16/22 01/16/22 01/16/22 01:54 01:59 02:04 Temperature Pulse Rate 72 68 81 Respiratory Rate Blood Pressure Blood Pressure [Right] O2 Sat by Pulse 96 97 97 Oximetry O2 Sat by Pulse Oximetry [ Anterior Bilateral Throughout] 01/16/22 01/16/22 01/16/22 02:09 02:14 02:19 Temperature Pulse Rate 73 73 69 Respiratory Rate Blood Pressure Blood Pressure [Right] O2 Sat by Pulse 97 96 97 Oximetry O2 Sat by Pulse Oximetry [ Anterior Bilateral Throughout] 01/16/22 01/16/22 01/16/22 02:24 02:29 02:34 Temperature Pulse Rate 73 71 72 Respiratory Rate Blood Pressure Blood Pressure [Right] O2 Sat by Pulse 97 96 97 Oximetry O2 Sat by Pulse Oximetry [ Anterior Bilateral Throughout] 01/16/22 01/16/22 01/16/22 02:39 02:44 02:49 Temperature Pulse Rate 73 59 L 68 Respiratory Rate Blood Pressure Blood Pressure [Right] O2 Sat by Pulse 97 96 97 Oximetry O2 Sat by Pulse Oximetry [ Anterior Bilateral Throughout] 01/16/22 01/16/22 01/16/22 02:54 02:59 03:04 Temperature Pulse Rate 72 70 69 Respiratory Rate Blood Pressure Blood Pressure [Right] O2 Sat by Pulse 96 96 96 Oximetry O2 Sat by Pulse Oximetry [ Anterior Bilateral Throughout] 01/16/22 01/16/22 01/16/22 03:09 03:14 03:19 Temperature Pulse Rate 74 67 78 Respiratory Rate Blood Pressure Blood Pressure [Right] O2 Sat by Pulse 97 96 96 Oximetry O2 Sat by Pulse Oximetry [ Anterior Bilateral Throughout] 01/16/22 01/16/22 01/16/22 03:24 03:29 03:34 Temperature Pulse Rate 75 75 82 Respiratory Rate Blood Pressure Blood Pressure [Right] O2 Sat by Pulse 96 95 96 Oximetry O2 Sat by Pulse Oximetry [ Anterior Bilateral Throughout] 01/16/22 01/16/22 01/16/22 03:39 03:44 03:49 Temperature Pulse Rate 82 69 80 Respiratory Rate Blood Pressure Blood Pressure [Right] O2 Sat by Pulse 96 95 96 Oximetry O2 Sat by Pulse Oximetry [ Anterior Bilateral Throughout] 01/16/22 01/16/22 01/16/22 03:54 03:59 04:04 Temperature Pulse Rate 69 74 72 Respiratory Rate Blood Pressure Blood Pressure [Right] O2 Sat by Pulse 96 97 97 Oximetry O2 Sat by Pulse Oximetry [ Anterior Bilateral Throughout] 01/16/22 01/16/22 01/16/22 04:09 04:14 04:19 Temperature Pulse Rate 56 L 71 68 Respiratory Rate Blood Pressure Blood Pressure [Right] O2 Sat by Pulse 97 97 96 Oximetry O2 Sat by Pulse Oximetry [ Anterior Bilateral Throughout] 01/16/22 01/16/22 01/16/22 04:24 04:29 04:34 Temperature Pulse Rate 67 73 68 Respiratory Rate Blood Pressure Blood Pressure [Right] O2 Sat by Pulse 97 97 96 Oximetry O2 Sat by Pulse Oximetry [ Anterior Bilateral Throughout] 01/16/22 01/16/22 01/16/22 04:39 04:44 04:49 Temperature Pulse Rate 70 60 68 Respiratory Rate Blood Pressure Blood Pressure [Right] O2 Sat by Pulse 97 97 97 Oximetry O2 Sat by Pulse Oximetry [ Anterior Bilateral Throughout] 01/16/22 01/16/22 01/16/22 04:54 04:59 05:04 Temperature Pulse Rate 72 68 73 Respiratory Rate Blood Pressure Blood Pressure [Right] O2 Sat by Pulse 96 96 97 Oximetry O2 Sat by Pulse Oximetry [ Anterior Bilateral Throughout] 01/16/22 01/16/22 01/16/22 05:09 05:12 05:14 Temperature 98.1 F Pulse Rate 70 64 75 Respiratory 18 Rate Blood Pressure 100/59 Blood Pressure 100/59 [Right] O2 Sat by Pulse 97 96 97 Oximetry O2 Sat by Pulse Oximetry [ Anterior Bilateral Throughout] 01/16/22 01/16/22 01/16/22 05:19 05:24 05:29 Temperature Pulse Rate 84 73 72 Respiratory Rate Blood Pressure Blood Pressure [Right] O2 Sat by Pulse 96 96 97 Oximetry O2 Sat by Pulse Oximetry [ Anterior Bilateral Throughout] 01/16/22 01/16/22 01/16/22 05:34 05:39 05:44 Temperature Pulse Rate 72 76 71 Respiratory Rate Blood Pressure Blood Pressure [Right] O2 Sat by Pulse 97 96 97 Oximetry O2 Sat by Pulse Oximetry [ Anterior Bilateral Throughout] 01/16/22 01/16/22 01/16/22 05:49 05:54 05:59 Temperature Pulse Rate 75 65 59 L Respiratory Rate Blood Pressure Blood Pressure [Right] O2 Sat by Pulse 97 96 97 Oximetry O2 Sat by Pulse Oximetry [ Anterior Bilateral Throughout] 01/16/22 01/16/22 01/16/22 06:04 06:09 06:14 Temperature Pulse Rate 77 71 76 Respiratory Rate Blood Pressure Blood Pressure [Right] O2 Sat by Pulse 97 97 97 Oximetry O2 Sat by Pulse Oximetry [ Anterior Bilateral Throughout] 01/16/22 01/16/22 01/16/22 06:19 06:24 06:29 Temperature Pulse Rate 84 74 73 Respiratory Rate Blood Pressure Blood Pressure [Right] O2 Sat by Pulse 99 98 97 Oximetry O2 Sat by Pulse Oximetry [ Anterior Bilateral Throughout] 01/16/22 01/16/22 01/16/22 06:34 06:39 06:44 Temperature Pulse Rate 62 72 69 Respiratory Rate Blood Pressure Blood Pressure [Right] O2 Sat by Pulse 96 96 96 Oximetry O2 Sat by Pulse Oximetry [ Anterior Bilateral Throughout] 01/16/22 01/16/22 01/16/22 06:49 06:54 06:57 Temperature Pulse Rate 69 67 79 Respiratory Rate Blood Pressure Blood Pressure [Right] O2 Sat by Pulse 96 95 94 Oximetry O2 Sat by Pulse Oximetry [ Anterior Bilateral Throughout] 01/16/22 01/16/22 01/16/22 06:59 07:04 07:05 Temperature Pulse Rate 71 72 78 Respiratory Rate Blood Pressure Blood Pressure [Right] O2 Sat by Pulse 96 95 94 Oximetry O2 Sat by Pulse Oximetry [ Anterior Bilateral Throughout] 01/16/22 01/16/22 01/16/22 07:09 07:14 07:19 Temperature Pulse Rate 75 73 67 Respiratory Rate Blood Pressure Blood Pressure [Right] O2 Sat by Pulse 97 96 96 Oximetry O2 Sat by Pulse Oximetry [ Anterior Bilateral Throughout] 01/16/22 01/16/22 01/16/22 07:24 07:29 07:34 Temperature Pulse Rate 70 74 67 Respiratory Rate Blood Pressure Blood Pressure [Right] O2 Sat by Pulse 97 99 97 Oximetry O2 Sat by Pulse Oximetry [ Anterior Bilateral Throughout] 01/16/22 01/16/22 01/16/22 07:39 07:44 07:49 Temperature Pulse Rate 78 71 70 Respiratory Rate Blood Pressure Blood Pressure [Right] O2 Sat by Pulse 96 97 97 Oximetry O2 Sat by Pulse Oximetry [ Anterior Bilateral Throughout] 01/16/22 01/16/22 01/16/22 07:54 07:59 08:00 Temperature 98.2 F Pulse Rate 72 64 69 Respiratory 16 Rate Blood Pressure 104/63 Blood Pressure 104/63 [Right] O2 Sat by Pulse 96 98 Oximetry O2 Sat by Pulse Oximetry [ Anterior Bilateral Throughout] 01/16/22 01/16/22 01/16/22 08:03 08:04 08:09 Temperature Pulse Rate 62 71 Respiratory Rate Blood Pressure Blood Pressure [Right] O2 Sat by Pulse 98 98 Oximetry O2 Sat by Pulse 99 Oximetry [ Anterior Bilateral Throughout] 01/16/22 01/16/22 01/16/22 08:13 08:14 08:19 Temperature Pulse Rate 78 71 63 Respiratory Rate Blood Pressure Blood Pressure [Right] O2 Sat by Pulse 94 97 97 Oximetry O2 Sat by Pulse Oximetry [ Anterior Bilateral Throughout] 01/16/22 01/16/22 01/16/22 08:24 08:29 08:34 Temperature Pulse Rate 77 82 75 Respiratory Rate Blood Pressure Blood Pressure [Right] O2 Sat by Pulse 96 97 97 Oximetry O2 Sat by Pulse Oximetry [ Anterior Bilateral Throughout] 01/16/22 01/16/22 01/16/22 08:39 08:41 08:44 Temperature Pulse Rate 65 71 79 Respiratory Rate Blood Pressure Blood Pressure [Right] O2 Sat by Pulse 97 94 96 Oximetry O2 Sat by Pulse Oximetry [ Anterior Bilateral Throughout] 01/16/22 01/16/22 01/16/22 08:49 08:54 08:59 Temperature Pulse Rate 69 69 73 Respiratory Rate Blood Pressure Blood Pressure [Right] O2 Sat by Pulse 96 97 97 Oximetry O2 Sat by Pulse Oximetry [ Anterior Bilateral Throughout] 01/16/22 01/16/22 01/16/22 09:04 09:09 09:14 Temperature Pulse Rate 71 62 63 Respiratory Rate Blood Pressure Blood Pressure [Right] O2 Sat by Pulse 96 96 96 Oximetry O2 Sat by Pulse Oximetry [ Anterior Bilateral Throughout] 01/16/22 01/16/22 01/16/22 09:19 09:24 09:26 Temperature Pulse Rate 66 67 75 Respiratory Rate Blood Pressure Blood Pressure [Right] O2 Sat by Pulse 95 96 94 Oximetry O2 Sat by Pulse Oximetry [ Anterior Bilateral Throughout] 01/16/22 01/16/22 01/16/22 09:29 09:31 09:34 Temperature Pulse Rate 71 73 74 Respiratory Rate Blood Pressure Blood Pressure [Right] O2 Sat by Pulse 93 94 96 Oximetry O2 Sat by Pulse Oximetry [ Anterior Bilateral Throughout] 01/16/22 01/16/22 01/16/22 09:39 09:44 09:49 Temperature Pulse Rate 70 73 73 Respiratory Rate Blood Pressure Blood Pressure [Right] O2 Sat by Pulse 95 96 96 Oximetry O2 Sat by Pulse Oximetry [ Anterior Bilateral Throughout] 01/16/22 01/16/22 01/16/22 09:54 09:59 10:04 Temperature Pulse Rate 72 68 67 Respiratory Rate Blood Pressure Blood Pressure [Right] O2 Sat by Pulse 96 96 97 Oximetry O2 Sat by Pulse Oximetry [ Anterior Bilateral Throughout] 01/16/22 01/16/22 01/16/22 10:09 10:14 10:19 Temperature Pulse Rate 66 72 73 Respiratory Rate Blood Pressure Blood Pressure [Right] O2 Sat by Pulse 95 97 96 Oximetry O2 Sat by Pulse Oximetry [ Anterior Bilateral Throughout] 01/16/22 01/16/22 01/16/22 10:24 10:29 10:34 Temperature Pulse Rate 75 65 65 Respiratory Rate Blood Pressure Blood Pressure [Right] O2 Sat by Pulse 99 86 97 Oximetry O2 Sat by Pulse Oximetry [ Anterior Bilateral Throughout] 01/16/22 01/16/2222 10:39 10:40 10:44 Temperature Pulse Rate 82 84 65 Respiratory Rate Blood Pressure Blood Pressure [Right] O2 Sat by Pulse 94 94 97 Oximetry O2 Sat by Pulse Oximetry [ Anterior Bilateral Throughout] 01/16/22 01/16/22 01/16/22 10:49 10:54 10:59 Temperature Pulse Rate 68 71 74 Respiratory Rate Blood Pressure Blood Pressure [Right] O2 Sat by Pulse 95 95 96 Oximetry O2 Sat by Pulse Oximetry [ Anterior Bilateral Throughout] 01/16/22 01/16/22 01/16/22 11:04 11:09 11:14 Temperature Pulse Rate 66 69 65 Respiratory Rate Blood Pressure Blood Pressure [Right] O2 Sat by Pulse 96 96 97 Oximetry O2 Sat by Pulse Oximetry [ Anterior Bilateral Throughout] - Labs CBC & Chem 7: 01/15/22 21:01 01/13/22 08:22 Labs: Abnormal lab results 01/15/22 Range/Units 21:01 RBC 3.14 L (3.65-5.03) M/mm3 Hgb 8.0 L (10.1-14.3) gm/dl Hct 25.5 L (30.3-42.9) % MCH 26 L (28-32) pg RDW 18.9 H (13.2-15.2) % [place] % (Auto) 10.8 H (0.0-7.3) % [place] # (Auto) 1.1 H (0.0-0.8) K/mm3 Seg Neutrophils % 71.6 H (40.0-70.0) %
--- NOTE | 2022-01-16 18:21 | Progress Note ---
Labor Epidural - Labor Epidural Start Time: 17:52 Stop Time: 17:58 Performed by:: ABEBA POWELL Procedure: Patient is requesting epidural for labor pain. H&P and labs reviewed. Procedure explained, questions answered, consent obtained. Patient placed in sitting position with monitors applied. Timeout performed immediately before start of procedure. Prep/drape in usual sterile fashion. Skin localized 3 mL 1% lidocaine at L[3]-L[4] interspace. 17-gauge Touhy epidural needle advanced to LADONNA with saline at [8] cm x 1 attempt. No blood/CSF noted via epidural needle. Epidural catheter advanced to [12] cm. Negative aspiration for blood and CSF via catheter, negative response to test dose 3 ml 1.5% lidocaine w/ Epi. Sterile dressing applied followed by tape reinforcement. Patient tolerated procedure well. No immediate complications noted.
[2022-01-17] MEDS: fentaNYL-BUPIV 2 MCG/ML-0.125% 200 MCG/100 ML BAG EPIDURAL SCH ×2 (01:44→09:32)
[2022-01-17] MEDS: LACTATED RINGERS 1,000 ML IV SCH (05:00)
--- NOTE | 2022-01-17 08:37 | Event Note ---
Date: 01/17/22 S: Feeling contractions O: VE 8/80/0, olu q 2-4 min, CAT I tracing VTX/Breech A: 33.1 weeks twin gest P: Dr. Berrios notified, will proceed to delivery in OR
[2022-01-17] MEDS ORDERED: LIDOCAINE 2%/EPINEPHRINE 1:200,000 VIAL (20 ML) INFILTRATI ONE (11:33)
[2022-01-17] MEDS ORDERED: ceFAZolin/Water 2 GM/20 ML 2 GM/20 ML SYRINGE IV ONE ×2 (11:43→14:21)
[2022-01-17] MEDS ORDERED: ONDANSETRON 4 MG/2 ML INJ ONE (12:10)
[2022-01-17] MEDS ORDERED: LACTATED RINGERS 1,000 ML ONE (12:21)
[2022-01-17] MEDS ORDERED: dexAMETHasone 20 MG/5 ML VIAL ONE (12:34)
[2022-01-17] MEDS ORDERED: BUPIVACAINE/PF (0.25%) 2.5 MG/ML 30 ML VIAL INFILTRATI ONE ×2 (12:34)
--- NOTE | 2022-01-17 13:06 | Anesthesia Day of Surgery ---
Anesthesia Day of Surgery - Day of Surgery Patient Examined: Yes Patient H&P Reviewed: Yes Patient is NPO: Yes
--- NOTE | 2022-01-17 13:07 | Progress Note ---
Regional Anesthesia Block - Regional Anesthesia Block Start Time: 12:49 Stop Time: 12:52 Performed By:: ABEBA POWELL Procedure: Patient consented for TAP block for post surgical pain management. Patient identified, monitors placed, and time out performed. TAP identified bilaterally via ultrasound. Skin prepped bilaterally with [chlorhexidine] and [22g stimuplex] needle advanced to the TAP. [Marcaine 0.25% 25ml] injected under ultrasound guidance on the [left] side. [Marcaine 0.25% 25ml] injected under ultrasound guidance on the [right] side. Negative aspiration every 5mL, No change in heart rate or rhythm. Patient tolerated the procedure well. No apparent complications seen.
[2022-01-17] MEDS ORDERED: MORPHINE 4 MG/1 ML INJ IV PRN (13:10)
[2022-01-17] MEDS ORDERED: NALOXONE 0.4 MG/1 ML INJ IV PRN (13:10)
--- NOTE | 2022-01-17 13:21 | Operative Report ---
Operative Report Operative Report: Date of surgery: January 18, 2020 Preoperative diagnoses: labor, 33-week, twin gestation Postoperative diagnoses: The same. Operation: Lower segment transverse delivery Surgeon:Mono Berrios MD Envelope Addresser: Julia Price CRNA Anesthesia: Epidural block Estimated blood loss: 600 mL Complications: None Findings: 2 live baby girls, baby A 4 pounds 4 ounces Apgars 8 and 9. Baby B 4 pounds 4 ounces Apgars 8/9. Baby A was delivered vertex and baby B was delivered complete breech. Both ovaries and fallopian tubes were grossly normal. The uterus was normal. There were no abnormalities evident within the lower abdomen and pelvis. Procedure in detail: The patient was taken to the operating room and given a spinal block. Patient was placed in the straight supine position and a Edmond catheter was inserted. The patient was prepped in the abdomen. The drapes were placed. A timeout was done. With the go ahead from the patient support tech, a Pfannenstiel incision was made. This incision was carried across the subcutaneous layer to the fascia which was also divided transversely. The recti abdominis muscle flaps were stripped from the fascia using a combination of blunt and sharp dissections. The muscles were in the midline to gain access to the anterior parietal peritoneum which was divided after excluding any underlying viscera. The access to the peritoneal cavity was then widened by manual stretching. The bladder blade was applied. The utero vesicle peritoneal flap was divided transversely allowing the bladder to be displaced caudally. The uterine incision was placed in the lower segment transversely. The uterine incision was carried to the decidual layer. The uterine incision was extended on both sides using the bandage scissors. The amniotic sac was ruptured with clear fluid. The head was lifted out of the false maternal pelvis and delivered through the incision using fundal pressure. The airways were bulb suctioned beginning with the mouth. Continuing fundal pressure combined with traction on the mandibular processes of the jaw delivered the rest of the baby. The umbilical cord was double clamped and divided. The baby was carefully transferred to the pediatric team. Baby B was delivered by lifting the feet out through the incision and deploying the Lovset maneuver to deliver the arms and the head. The airways were bulb suction before clamping the umbilical cord and safely transferring the baby over to the pediatric team. The placenta was manually removed from the uterine cavity. The uterine cavity was explored and was empty of any placental remnants. The uterine incision was repaired in 2 layers with #1 Vicryl. The surgical line on the uterus was hemostatic. Blood and clots were cleared from the peritoneal cavity. The anterior parietal peritoneum was repaired with #1 Vicryl. The fascia was repaired with #1 Vicryl. The subcutaneous layer was made hemostatic using the Bovie before the skin was closed subcuticularly with 4-0 Vicryl. There were no complications. The estimated blood loss was 600 mL. All sponges and instrument counts were correct. Patient was safely transferred to the recovery room.
--- NOTE | 2022-01-17 13:27 | Event Note ---
Date: 01/17/22 A double set up was arranged. Examination of the vagina within the operating room was done. The lack of elasticity of the cervix and vagina and perineum was determined not to be conducive for a successful vaginal twin delivery, particularly of the second baby who was in breech. Delivery was converted to a .
[2022-01-17] MEDS ORDERED: WITCH HAZEL/ GLYCERIN PAD TP PRN (14:00)
[2022-01-17] MEDS ORDERED: LANOLIN/ZINC/DIMETHICONE (LANSINOH) 7 GM TP PRN (14:00)
[2022-01-17] MEDS ORDERED: KETOROLAC 30 MG/1 ML INJ IV PRN (14:00)
[2022-01-17] MEDS ORDERED: IBUPROFEN 600 MG TAB PO PRN (14:00)
[2022-01-17] MEDS ORDERED: ACETAMINOPHEN 325 MG TAB PO PRN (14:00)
[2022-01-17] MEDS ORDERED: OXYTOCIN DRIP 30 UNITS/500 ML BAG IV SCH (14:00)
[2022-01-17] MEDS ORDERED: ONDANSETRON 4 MG/2 ML INJ IV PRN (14:00)
[2022-01-17] MEDS: MORPHINE 2 MG/1 ML INJ IV PRN ×2 (14:36→23:22)
[2022-01-17] MEDS: KETOROLAC 30 MG/1 ML INJ IV PRN (18:06)
[2022-01-17] MEDS ORDERED: MAGNESIUM HYDROXIDE (MOM) ORAL LIQD UDC PO PRN (22:00)
[2022-01-17] MEDS: ceFAZolin/NS 1 GM/50 ML 1 GM/50 ML BAG IV SCH (23:05)
[2022-01-18] MEDS ORDERED: LACTATED RINGERS 1,000 ML IV SCH (00:45)
[2022-01-18] MEDS: KETOROLAC 30 MG/1 ML INJ IV PRN (01:22)
[2022-01-18 05:56] LABS: Hematocrit 21.7 % (30.3-42.9)
[2022-01-18] MEDS: ceFAZolin/NS 1 GM/50 ML 1 GM/50 ML BAG IV SCH (07:01)
[2022-01-18] MEDS: HYDROcodone/ACETAMINOPHEN 5-325 MG TAB PO PRN ×3 (07:29→20:15)
[2022-01-18] MEDS ORDERED: PRENATAL VIT27-FE FUMARATE-FOLIC ACID VIT TAB PO SCH (10:00)
[2022-01-18] MEDS ORDERED: IRON DEXTRAN COMPLEX 100 MG/2 ML INJ IM ONE (12:24)
--- NOTE | 2022-01-18 12:56 | Progress Note ---
Assessment and Plan A: POD #1 Asymptomatic Anemia P: Follow Routine PostOp Orders Infed 100mg IM x 1 dose Subjective - Subjective Date of service: 01/18/22 Principal diagnosis: Labor; Twin Gestation Patient reports: appetite normal, voiding normally, pain well controlled, flatus, ambulating normally : in NICU, bottle feeding Objective - Vital Signs Latest vital signs: Vital Signs Temp Pulse Resp BP BP Pulse Ox Pulse Ox 01/18/22 08:30 98 01/18/22 08:00 98.2 F 57 L 20 101/60 96 01/18/22 04:42 97.1 F L 58 L 16 104/40 98 01/17/22 23:22 18 01/17/22 23:11 52 L 113/58 01/17/22 19:40 98 01/17/22 15:30 98.5 F 67 18 103/43 98 98 01/17/22 14:00 99 F 72 20 123/54 98 01/17/22 13:45 85 20 121/50 98 01/17/22 13:30 63 20 127/58 98 01/17/22 13:20 68 20 140/62 95 01/17/22 13:15 67 20 145/59 98 01/17/22 13:10 67 20 148/66 96 01/17/22 13:05 96.9 F L 63 18 129/45 96 Intake and Output 01/17/22 01/18/22 01/18/22 22:59 06:59 14:59 Intake Total 300 250 240 Output Total 1999 900 400 Balance -1700 -650 -160 Intake: IV 300 50 ANCEF/NS 1 GM/50 ML 1 gm 50 In 50 ml @ 100 mls/hr IV Q8H COUNTS INCLUDE 234 BEDS AT THE [facility] Rx#:[id number] Oral 200 240 Output: Urine 1999 900 400 Indwelling Catheter 1300 300 Void 600 400 Other: Total, Intake Amount 200 240 Total, Output Amount 1300 600 400 # Voids Void 1 1 - Exam Breasts: Present: normal Cardiovascular: Present: Regular rate Lungs: Present: Clear to auscultation, Normal air movement Abdomen: Present: normal appearance, soft, normal bowel sounds Uterus: Present: normal, firm, fundal height below umbilicus Extremities: Present: normal Incision: Present: dry, dressed - Labs Labs: Abnormal lab results 01/18/22 Range/Units 05:17 Hgb 7.0 L (10.1-14.3) gm/dl Hct 21.7 L (30.3-42.9) %
--- NOTE | 2022-01-18 14:05 | Post Anesthesia Evaluation ---
- Post Anesthesia Evaluation Patient Participated: Yes Airway Patent: Yes Stable Respiratory Function: Yes Nausea/Vomiting: No Temp > 96.8F: Yes Pain Manageable: Yes Adequeate Hydration: Yes Anesthesia Complications: No Block Receding Appropriately: Yes Patient on Ventilator: No Other Comments: Pt stated that she was doing better than yesterday with adequate ambulation, intake and voiding.
[2022-01-18] MEDS: IBUPROFEN 800 MG TAB PO PRN (23:00)
[2022-01-19] MEDS: HYDROcodone/ACETAMINOPHEN 5-325 MG TAB PO PRN ×2 (03:29→10:40)
[2022-01-19 13:46] VITALS: BP 104/58
--- NOTE | 2022-01-19 14:33 | Discharge Summary ---
Providers - Providers Date of Admission: 01/14/22 05:44 Date of discharge: 01/19/22 Attending physician: DOMINIK COSTELLO Primary care physician: SUJIT BARBOSA Hospitalization Reason for admission: labor Delivery: (VERTEX/BREECH TWINS) Procedure: section, primary low transverse Incision: normal, dry complications: other (ASYMPTOMATIC ANEMIA) baby: twins Condition at discharge: Good Disposition: 01 HOME / SELF CARE / HOMELESS Plan - Provider Discharge Summary Activity: no sex for 6 weeks, no heavy lifting 4 weeks, no strenuous exercise Diet: routine Instructions: routine Additional instructions: [] Smoking cessation referral if applicable(refer to patient education folder for contact #) [] Refer to [facility] Book[facility] Call your doctor immediately for: * Fever > 100.5 * Heavy vaginal bleeding ( >1 pad per hour) * Severe persistent headache * Shortness of breath * Reddened, hot, painful area to leg or breast * Drainage or odor from incision. * Keep incision clean and dry at all times and follow doctor's instructions regarding bathing/showering - Follow up plan Follow up: SUJIT BARBOSA MD [Primary Care Provider] - 7 Days (FOR INCISION CHECK)
[2022-01-19] MEDS: IBUPROFEN 800 MG TAB PO PRN (15:55)
== END 2022-01-19 17:20 | disposition home or self-care (01) | DRG 786 ==
LOC: TRG 05:43 → LD 05:48 → TRG 01-14 09:23 → OB 01-17 17:56
PROVIDERS: ADMIT Obstetrics & Gynecology; ATTEND Obstetrics & Gynecology
PROC: 10D00Z1 Extraction of Products of Conception, Low, Open Approach (ICD-10-PCS; principal; 2022-01-14)
DX: O30.003 Twin pregnancy, unspecified number of placenta and unspecified number of amniotic sacs, third trimester (principal); O60.14X0 Preterm labor third trimester with preterm delivery third trimester, not applicable or unspecified; Z3A.32 32 weeks gestation of pregnancy; O99.214 Obesity complicating childbirth; O99.02 Anemia complicating childbirth; Z37.0 Single live birth; Z20.822 Contact with and (suspected) exposure to COVID-19
CPT/HCPCS: 36415; 76815; 76816; 76819; 80053; 80307; 81001; 82731; 83735; 85014; 85018; 85025; 86592; 86706; 86762; 86803; 86850; 86900; 86901; 87086; 87116; 87806; 88307; G0378; J3490; J7121; J0290; J0690; J0702; J1100; J1200; J1750; J1885; J2270; J2405; J3010; J3475; J7120; U0003